=== PATIENT | male | born 1980 | race African-American/Black ===

== ENCOUNTER 2020-02-16 20:26 | Inpatient (IN) ==
[2020-02-16] MEDS ORDERED: ONDANSETRON 4 MG/2 ML VIAL IV STA (21:31)
[2020-02-16] MEDS ORDERED: SODIUM CHLORIDE 0.9% 1,000 ML IV STA (21:31)
[2020-02-16 22:06] LABS: Basophils # 0.1 10*3/uL (0.0-0.2); Basophils % 0.6 % (0.0-0.8); Eosinophils % 0.1 % (0.00-10.9); Hematocrit 34.9 VOL% (42.0-52.0); Hemoglobin 10.9 GM/DL (14.0-18.0); Immature Granulocytes % 0.9 %; Lymphocytes # 0.8 10*3/uL (1.4-4.0); Lymphocytes % 6.8 % (21.2-54.2); Mean Corpuscular HGB Conc 31.2 GM/DL (32-36); Mean Corpuscular Volume 81.2 FL (87-102); Monocytes % 9.4 % (1.7-12.7); Neutrophils % 82.2 % (38.7-73.9); Platelet Count 223 T/CUMM (130-400); Red Cell Distribution Width 15.1 % (9.3-17.3); White Blood Count 11.7 T/CUMM (4-12)
[2020-02-16 22:27] LABS: Bilirubin,Total 0.6 MG/DL (0.2-1.0); Calcium 8.4 MG/DL (8.5-10.1); Osmolality,Calculated 276.2 MOS/KG (273-304); Total Protein 9.2 G/DL (6.4-8.3)
[2020-02-16] MEDS ORDERED: MAGNESIUM SULF RIDER 2 GM in PREMIX 1 EACH IV STA (22:38)
[2020-02-16] MEDS ORDERED: PIPERACILLIN/TAZOBACTAM 3,375 MG in SODIUM CHLORIDE 0.9% 100 ML IV STA (22:47)
[2020-02-16] MEDS ORDERED: PROMETHAZINE 25 MG/1 ML VIAL ONE (23:54)
[2020-02-16] MEDS ORDERED: PROMETHAZINE 25 MG/1 ML VIAL IM STA (23:55)
[2020-02-17 01:53] LABS: Apearance,Urine Slightly Hazy (Clear); Bacteria,Urine Few /HPF (Few); Bilirubin,Urine Negative (Negative); Blood, Urine Moderate mg/dL (Negative); Glucose,Urine (UA) 50 mg/dL (Negative); Granular Casts,Urine 11 /LPF (0-1); Hyaline Casts,Urine 94 /LPF (0-3); Ketones,Urine Negative (Negative); Mucus,Urine Few /LPF (Occasional); Nitrite,Urine Negative (Negative); Protein,Urine >=500 MG/DL; RBC,Urine 13 /HPF (0-4); Red Blood Cell Casts,Urine 4 /LPF (<1); Renal Epithelial Cells,Urine Occasional /HPF (<1); Sperm,Urine Few /HPF (Negative); Urine Color Amber (Yellow); Urine Specific Gravity 1.026 (1.001-1.035); Urine Urobilinogen < 2.0 EU/DL (0.2-1.0); WBC,Urine 5 /HPF (0-6)
[2020-02-17] MEDS ORDERED: PROMETHAZINE INJ 25 MG in SODIUM CHLORIDE 0.9% 50 ML IV PRN (02:11)
[2020-02-17] MEDS ORDERED: ALBUTEROL 2.5 MG/3 ML NEB RESP TX PRN (02:11)
[2020-02-17] MEDS ORDERED: PANTOPRAZOLE 40 MG VIAL IV STA (02:12)
[2020-02-17] MEDS ORDERED: MAGNESIUM SULF RIDER 2 GM in PREMIX 1 EACH IV PRN (02:13)
[2020-02-17] MEDS ORDERED: MAGNESIUM SULF RIDER 4 GM in PREMIX 1 EACH IV PRN (02:13)
[2020-02-17] MEDS ORDERED: DEXTROSE 50% 25 GM/50 ML VIAL IV PRN (02:17)
[2020-02-17] MEDS ORDERED: GLUCAGON 1 MG VIAL IM PRN (02:17)
[2020-02-17 04:50] LABS: Basophils # 0.1 10*3/uL (0.0-0.2); Basophils % 0.5 % (0.0-0.8); Eosinophils # 0.1 10*3/uL (0.0-0.87); Eosinophils % 0.3 % (0.00-10.9); Hematocrit 24.8 VOL% (42.0-52.0); Hemoglobin 7.4 GM/DL (14.0-18.0); Immature Granulocytes % 0.9 %; Immature Granulocytes Absolute 0.15 #; Lymphocytes # 1.4 10*3/uL (1.4-4.0); Mean Corpuscular HGB Conc 29.8 GM/DL (32-36); Mean Corpuscular Volume 82.4 FL (87-102); Mean Platelet Volume 10.5 FL (9.6-12.0); Monocytes % 7.8 % (1.7-12.7); Neutrophils % 82.5 % (38.7-73.9); Platelet Count 265 T/CUMM (130-400); Red Blood Count 3.01 MC/CUMM (3.8-5.5); Red Cell Distribution Width 15.1 % (9.3-17.3); White Blood Count 17.3 T/CUMM (4-12)
[2020-02-17 05:04] LABS: Calcium 8.2 MG/DL (8.5-10.1); Osmolality,Calculated 279.1 MOS/KG (273-304)
[2020-02-17] MEDS: SODIUM CHLORIDE 0.9% 1,000 ML IV SCH ×3 (06:00→20:23)
[2020-02-17 06:53] LABS: Ferritin 518.7 ng/ml (26-388)
[2020-02-17 07:26] LABS: Basophils # 0.1 10*3/uL (0.0-0.2); Basophils % 0.4 % (0.0-0.8); Hematocrit 23.4 VOL% (42.0-52.0); Hemoglobin 7.3 GM/DL (14.0-18.0); Immature Granulocytes % 0.8 %; Immature Granulocytes Absolute 0.12 #; Lymphocytes % 6.4 % (21.2-54.2); Mean Corpuscular HGB Conc 31.2 GM/DL (32-36); Mean Corpuscular Volume 81.3 FL (87-102); Mean Platelet Volume 10.7 FL (9.6-12.0); Monocytes % 7.5 % (1.7-12.7); Neutrophils % 84.9 % (38.7-73.9); Platelet Count 243 T/CUMM (130-400); Red Blood Count 2.88 MC/CUMM (3.8-5.5); Red Cell Distribution Width 15.1 % (9.3-17.3); White Blood Count 15.5 T/CUMM (4-12)
[2020-02-17 07:49] LABS: % Iron Saturation 7.7 % (18-50); Ferritin 531.9 ng/ml (26-388)
[2020-02-17 07:55] LABS: Folate 12.9 NG/ML (5.4-24.0); Vitamin B12 390 PG/ML (211-911)
[2020-02-17 08:36] LABS: Sedimentation Rate-Westergren 134 MM/HR (0-15)
[2020-02-17] MEDS ORDERED: VANCOMYCIN 1,000 MG VIAL ONE (09:41)
[2020-02-17] MEDS: INSULIN GLARGINE 100 UNIT/ML SUBCUT SCH (10:15)
[2020-02-17] MEDS: ROSUVASTATIN 20 MG TABLET PO SCH (10:15)
[2020-02-17] MEDS: NEBIVOLOL 5 MG TABLET PO SCH (10:15)
[2020-02-17] MEDS: ENOXAPARIN 40 MG/0.4 ML SYRINGE SUBCUT SCH (10:15)
[2020-02-17] MEDS: amLODIPine 10 MG TABLET PO SCH (10:15)
[2020-02-17] MEDS: PANTOPRAZOLE 40 MG VIAL IV SCH (10:15)
[2020-02-17] MEDS: VANCOMYCIN INJ 2,000 MG in SODIUM CHLORIDE 0.9% 500 ML IV SCH (10:30)
[2020-02-17] MEDS: INSULIN LISPRO 100 UNIT/ML SUBCUT SCH ×4 (10:43→21:39)
[2020-02-17] MEDS: PIPERACILLIN/TAZOBACTAM 3,375 MG in SODIUM CHLORIDE 0.9% 100 ML IV SCH ×3 (12:40→21:39)
[2020-02-17] MEDS ORDERED: ACETAMINOPHEN 325 MG TABLET PO PRN ×2 (20:59→23:26)
[2020-02-17] MEDS ORDERED: ACETAMINOPHEN 500 MG TABLET PO ONE (21:00)
[2020-02-18] MEDS: VANCOMYCIN INJ 2,000 MG in SODIUM CHLORIDE 0.9% 500 ML IV SCH ×2 (01:19→17:13)
[2020-02-18] MEDS: PIPERACILLIN/TAZOBACTAM 3,375 MG in SODIUM CHLORIDE 0.9% 100 ML IV SCH ×3 (06:09→20:31)
[2020-02-18] MEDS: SODIUM CHLORIDE 0.9% 1,000 ML IV SCH ×3 (06:12→17:59)
[2020-02-18 06:25] LABS: Basophils # 0.1 10*3/uL (0.0-0.2); Basophils % 0.5 % (0.0-0.8); Eosinophils % 0.4 % (0.00-10.9); Hematocrit 21.3 VOL% (42.0-52.0); Immature Granulocytes % 0.5 %; Immature Granulocytes Absolute 0.06 #; Lymphocytes # 1.2 10*3/uL (1.4-4.0); Lymphocytes % 11.1 % (21.2-54.2); Mean Corpuscular Volume 83.5 FL (87-102); Mean Platelet Volume 10.4 FL (9.6-12.0); Monocytes % 14.4 % (1.7-12.7); Neutrophils % 73.1 % (38.7-73.9); Platelet Count 198 T/CUMM (130-400); Red Blood Count 2.55 MC/CUMM (3.8-5.5); Red Cell Distribution Width 15.2 % (9.3-17.3)
[2020-02-18 06:35] LABS: Hemoglobin 6.4 GM/DL (14.0-18.0)
[2020-02-18] MEDS ORDERED: SODIUM CHLORIDE 0.9% 1,000 ML IV PRN (06:40)
[2020-02-18 06:49] LABS: Osmolality,Calculated 279.8 MOS/KG (273-304)
[2020-02-18 07:01] LABS: Anisocytosis 2+; Platelet Estimate Normal
[2020-02-18] MEDS: INSULIN LISPRO 100 UNIT/ML SUBCUT SCH ×4 (08:30→20:55)
[2020-02-18] MEDS: ENOXAPARIN 40 MG/0.4 ML SYRINGE SUBCUT SCH (08:31)
[2020-02-18] MEDS ORDERED: LIDOCAINE 1% 20 ML VIAL ONE (09:09)
[2020-02-18] MEDS ORDERED: BUPIVACAINE MPF 0.25% 30 ML VIAL ONE (09:09)
[2020-02-18] MEDS: INSULIN GLARGINE 100 UNIT/ML SUBCUT SCH (09:11)
[2020-02-18] MEDS: PANTOPRAZOLE 40 MG VIAL IV SCH (09:11)
[2020-02-18] MEDS: amLODIPine 10 MG TABLET PO SCH (09:11)
[2020-02-18] MEDS: NEBIVOLOL 5 MG TABLET PO SCH (09:11)
[2020-02-18] MEDS: ROSUVASTATIN 20 MG TABLET PO SCH (09:11)
[2020-02-18] MEDS ORDERED: ONDANSETRON 4 MG/2 ML VIAL IV PRN (09:27)
[2020-02-18] MEDS ORDERED: diphenhydrAMINE 50 MG/1 ML VIAL IV PRN (09:27)
[2020-02-18] MEDS ORDERED: PROMETHAZINE INJ 25 MG in SODIUM CHLORIDE 0.9% 50 ML IV PRN (09:27)
[2020-02-18] MEDS ORDERED: FAMOTIDINE 20 MG TABLET PO ONE (09:29)
[2020-02-18] MEDS ORDERED: DEXMEDETOMIDINE 200 MCG/2 ML VIAL ONE (10:25)
[2020-02-18] MEDS ORDERED: MIDAZOLAM 2 MG/2 ML VIAL ONE (10:58)
[2020-02-18 18:46] LABS: Hematocrit 25.2 VOL% (42.0-52.0)
[2020-02-18 18:49] LABS: Hemoglobin 7.5 GM/DL (14.0-18.0)
[2020-02-18] MEDS: ONDANSETRON 4 MG/2 ML VIAL IV PRN (20:29)
[2020-02-18] MEDS: MORPHINE 4 MG/1 ML VIAL IV PRN (20:30)
[2020-02-18] MEDS: IBUPROFEN 600 MG TABLET PO PRN (20:45)
[2020-02-19] MEDS: SODIUM CHLORIDE 0.9% 1,000 ML IV SCH ×3 (03:26→22:01)
[2020-02-19] MEDS: PIPERACILLIN/TAZOBACTAM 3,375 MG in SODIUM CHLORIDE 0.9% 100 ML IV SCH (04:46)
[2020-02-19 05:33] LABS: Basophils # 0.1 10*3/uL (0.0-0.2); Basophils % 0.6 % (0.0-0.8); Eosinophils # 0.1 10*3/uL (0.0-0.87); Eosinophils % 1.5 % (0.00-10.9); Hematocrit 23.7 VOL% (42.0-52.0); Hemoglobin 7.3 GM/DL (14.0-18.0); Immature Granulocytes % 0.6 %; Immature Granulocytes Absolute 0.05 #; Lymphocytes # 1.2 10*3/uL (1.4-4.0); Lymphocytes % 15.2 % (21.2-54.2); Mean Corpuscular HGB Conc 30.8 GM/DL (32-36); Mean Platelet Volume 10.8 FL (9.6-12.0); Monocytes % 20.2 % (1.7-12.7); Neutrophils % 61.9 % (38.7-73.9); Platelet Count 212 T/CUMM (130-400); Red Blood Count 2.89 MC/CUMM (3.8-5.5); Red Cell Distribution Width 15.2 % (9.3-17.3); White Blood Count 8.2 T/CUMM (4-12)
[2020-02-19 05:54] LABS: Calcium 8.2 MG/DL (8.5-10.1); Osmolality,Calculated 276.8 MOS/KG (273-304)
[2020-02-19 06:03] LABS: Eosinophils 4 % (0-10); Hypochromasia 2+; Lymphocytes 12 % (20-55); Microcytosis 1+; Ovalocytes Slight; Platelet Estimate Adequate; Segmented Neutrophils 74 % (50-85); Total Cells Counted 100
[2020-02-19] MEDS: INSULIN GLARGINE 100 UNIT/ML SUBCUT SCH (08:27)
[2020-02-19] MEDS: NEBIVOLOL 5 MG TABLET PO SCH (08:27)
[2020-02-19] MEDS: INSULIN LISPRO 100 UNIT/ML SUBCUT SCH ×4 (08:27→22:01)
[2020-02-19] MEDS ORDERED: MAGNESIUM CITRATE 300 ML BOTTLE PO ONE (08:36)
[2020-02-19] MEDS: ROSUVASTATIN 20 MG TABLET PO SCH (08:36)
[2020-02-19] MEDS ORDERED: propofoL 200 MG/20 ML VIAL IV ONE (09:00)
[2020-02-19] MEDS ORDERED: LIDOCAINE 2% 5 ML VIAL ONE (09:00)
[2020-02-19 09:04] LABS: Hemoglobin A1 (Alkaline) 98.2 % (96.5-98.5); Hemoglobin A2 (Alkaline) 1.8 % (1.5-3.5)
[2020-02-19] MEDS: VANCOMYCIN INJ 2,000 MG in SODIUM CHLORIDE 0.9% 500 ML IV SCH ×2 (11:08→23:54)
[2020-02-19] MEDS: ENOXAPARIN 40 MG/0.4 ML SYRINGE SUBCUT SCH (13:34)
[2020-02-19] MEDS: DOCUSATE SODIUM 100 MG CAPSULE PO PRN ×2 (15:03→21:59)
[2020-02-19] MEDS: amLODIPine 10 MG TABLET PO SCH (15:04)
[2020-02-19] MEDS: IBUPROFEN 600 MG TABLET PO PRN (15:04)
[2020-02-19] MEDS: PANTOPRAZOLE 40 MG VIAL IV SCH (15:04)
[2020-02-19] MEDS: MEPERIDINE 25 MG/1 ML VIAL IV PRN (15:34)
[2020-02-20 08:42] LABS: Basophils % 0.6 % (0.0-0.8); Eosinophils # 0.2 10*3/uL (0.0-0.87); Eosinophils % 2.3 % (0.00-10.9); Hematocrit 22.5 VOL% (42.0-52.0); Hemoglobin 7.1 GM/DL (14.0-18.0); Immature Granulocytes % 0.9 %; Immature Granulocytes Absolute 0.06 #; Lymphocytes # 1.6 10*3/uL (1.4-4.0); Lymphocytes % 24.7 % (21.2-54.2); Mean Corpuscular HGB Conc 31.6 GM/DL (32-36); Mean Corpuscular Volume 82.1 FL (87-102); Mean Platelet Volume 10.4 FL (9.6-12.0); Monocytes % 16.3 % (1.7-12.7); Neutrophils % 55.2 % (38.7-73.9); Platelet Count 207 T/CUMM (130-400); Red Blood Count 2.74 MC/CUMM (3.8-5.5); Red Cell Distribution Width 15.6 % (9.3-17.3); White Blood Count 6.4 T/CUMM (4-12)
[2020-02-20 09:04] LABS: Eosinophils 4 % (0-10); Hypochromasia 1+; Lymphocytes 24 % (20-55); Microcytosis 1+; Segmented Neutrophils 60 % (50-85); Total Cells Counted 100
[2020-02-20 09:05] LABS: Calcium 7.9 MG/DL (8.5-10.1); Osmolality,Calculated 277.7 MOS/KG (273-304); Ovalocytes Slight; Polychromasia Slight
[2020-02-20] MEDS: ONDANSETRON 4 MG/2 ML VIAL IV PRN (09:23)
[2020-02-20] MEDS: NEBIVOLOL 5 MG TABLET PO SCH (09:23)
[2020-02-20] MEDS: ROSUVASTATIN 20 MG TABLET PO SCH (09:23)
[2020-02-20] MEDS: amLODIPine 10 MG TABLET PO SCH (09:23)
[2020-02-20] MEDS: ENOXAPARIN 40 MG/0.4 ML SYRINGE SUBCUT SCH (09:24)
[2020-02-20] MEDS: INSULIN LISPRO 100 UNIT/ML SUBCUT SCH ×4 (09:24→21:24)
[2020-02-20] MEDS: MEPERIDINE 25 MG/1 ML VIAL IV PRN (09:25)
[2020-02-20] MEDS: INSULIN GLARGINE 100 UNIT/ML SUBCUT SCH (09:26)
[2020-02-20] MEDS: PANTOPRAZOLE 40 MG VIAL IV SCH (09:26)
[2020-02-20] MEDS: IBUPROFEN 600 MG TABLET PO PRN (09:26)
[2020-02-20] MEDS: DOCUSATE SODIUM 100 MG CAPSULE PO PRN (09:26)
[2020-02-20] MEDS: SODIUM CHLORIDE 0.9% 1,000 ML IV SCH ×3 (09:30→20:46)
[2020-02-20] MEDS: VANCOMYCIN INJ 2,000 MG in SODIUM CHLORIDE 0.9% 500 ML IV SCH ×2 (13:00→23:45)
[2020-02-20] MEDS: MORPHINE 4 MG/1 ML VIAL IV PRN (15:33)
[2020-02-21] MEDS: SODIUM CHLORIDE 0.9% 1,000 ML IV SCH (05:37)
[2020-02-21 07:20] LABS: Basophils # 0.1 10*3/uL (0.0-0.2); Basophils % 0.6 % (0.0-0.8); Eosinophils # 0.1 10*3/uL (0.0-0.87); Eosinophils % 1.8 % (0.00-10.9); Hematocrit 23.5 VOL% (42.0-52.0); Immature Granulocytes % 1.8 %; Immature Granulocytes Absolute 0.14 #; Lymphocytes % 25.2 % (21.2-54.2); Mean Corpuscular HGB Conc 29.8 GM/DL (32-36); Mean Corpuscular Volume 84.5 FL (87-102); Mean Platelet Volume 10.3 FL (9.6-12.0); Monocytes % 9.7 % (1.7-12.7); Neutrophils % 60.9 % (38.7-73.9); Platelet Count 239 T/CUMM (130-400); Red Blood Count 2.78 MC/CUMM (3.8-5.5); Red Cell Distribution Width 15.5 % (9.3-17.3); White Blood Count 7.9 T/CUMM (4-12)
[2020-02-21 07:34] LABS: Calcium 7.9 MG/DL (8.5-10.1); Osmolality,Calculated 277.7 MOS/KG (273-304)
[2020-02-21 07:38] LABS: Eosinophils 2 % (0-10); Hypochromasia 2+; Lymphocytes 17 % (20-55); Microcytosis 1+; Ovalocytes Slight; Platelet Estimate Adequate; Segmented Neutrophils 75 % (50-85); Total Cells Counted 100
[2020-02-21] MEDS ORDERED: ROPIVACAINE 0.5% 30 ML VIAL ONE (08:42)
[2020-02-21] MEDS ORDERED: EPINEPHrine 1 MG/ML VIAL ONE (08:42)
[2020-02-21] MEDS ORDERED: DEXAMETHASONE 4 MG/1 ML VIAL ONE (08:42)
[2020-02-21] MEDS: NEBIVOLOL 5 MG TABLET PO SCH (08:43)
[2020-02-21] MEDS: amLODIPine 10 MG TABLET PO SCH (08:43)
[2020-02-21] MEDS: PANTOPRAZOLE 40 MG VIAL IV SCH (08:44)
[2020-02-21] MEDS: INSULIN LISPRO 100 UNIT/ML SUBCUT SCH ×4 (11:33→21:10)
[2020-02-21] MEDS: ROSUVASTATIN 20 MG TABLET PO SCH (11:34)
[2020-02-21] MEDS: INSULIN GLARGINE 100 UNIT/ML SUBCUT SCH (11:34)
[2020-02-21] MEDS: ENOXAPARIN 40 MG/0.4 ML SYRINGE SUBCUT SCH (11:34)
[2020-02-21] MEDS ORDERED: SODIUM CHLORIDE 0.9% 1,000 ML IV PRN ×2 (12:18→12:21)
[2020-02-21 12:22] LABS: Hematocrit 25.4 VOL% (42.0-52.0); Hemoglobin 7.7 GM/DL (14.0-18.0)
[2020-02-21] MEDS ORDERED: ACETAMINOPHEN 1,000 MG/100 ML VIAL IV ONE (12:53)
[2020-02-21] MEDS ORDERED: ONDANSETRON 4 MG/2 ML VIAL ONE ×2 (13:07→13:10)
[2020-02-21] MEDS ORDERED: HYDROmorphone 2 MG/1 ML VIAL ONE (13:07)
[2020-02-21] MEDS: HYDROmorphone 2 MG/1 ML VIAL IV PRN ×2 (13:07→13:30)
[2020-02-21] MEDS ORDERED: propofoL 200 MG/20 ML VIAL IV ONE (13:09)
[2020-02-21] MEDS ORDERED: DESFLURANE 1 UNIT/15 MINUTE INH ONE (13:09)
[2020-02-21] MEDS ORDERED: ALBUMIN 5% 12.5 GM/250 ML VIAL IV ONE (13:09)
[2020-02-21] MEDS ORDERED: LIDOCAINE 2% 5 ML VIAL ONE (13:09)
[2020-02-21] MEDS ORDERED: fentaNYL 250 MCG/5 ML VIAL ONE (13:09)
[2020-02-21] MEDS ORDERED: PHENYLEPHRINE 1 MG/10 ML SYRINGE IV ONE (13:10)
[2020-02-21] MEDS ORDERED: SODIUM CHLORIDE 0.9% 2,000 ML IV ONE (13:10)
[2020-02-21] MEDS ORDERED: fentaNYL 100 MCG/2 ML VIAL ONE (13:10)
[2020-02-21] MEDS ORDERED: LACTATED RINGERS 1,000 ML IV ONE (13:10)
[2020-02-21] MEDS ORDERED: MIDAZOLAM 2 MG/2 ML VIAL ONE (13:10)
[2020-02-21] MEDS ORDERED: SUCCINYLCHOLINE 200 MG/10 ML VIAL ONE (13:10)
[2020-02-21] MEDS ORDERED: ONDANSETRON 4 MG/2 ML VIAL IV PRN (13:16)
[2020-02-21 15:25] LABS: Hemoglobin 7.9 GM/DL (14.0-18.0)
[2020-02-21] MEDS: MORPHINE 4 MG/1 ML VIAL IV PRN ×2 (17:44→20:33)
[2020-02-21] MEDS: IBUPROFEN 600 MG TABLET PO PRN (18:58)
[2020-02-22] MEDS: MORPHINE 4 MG/1 ML VIAL IV PRN ×5 (01:57→20:37)
[2020-02-22] MEDS: SODIUM CHLORIDE 0.9% 1,000 ML IV SCH ×4 (01:58→16:51)
[2020-02-22 05:45] LABS: Basophils # 0.1 10*3/uL (0.0-0.2); Basophils % 0.4 % (0.0-0.8); Eosinophils # 0.1 10*3/uL (0.0-0.87); Eosinophils % 0.5 % (0.00-10.9); Hematocrit 24.8 VOL% (42.0-52.0); Hemoglobin 7.8 GM/DL (14.0-18.0); Immature Granulocytes % 2.3 %; Immature Granulocytes Absolute 0.29 #; Lymphocytes # 2.1 10*3/uL (1.4-4.0); Lymphocytes % 16.7 % (21.2-54.2); Mean Corpuscular HGB Conc 31.5 GM/DL (32-36); Mean Corpuscular Volume 83.5 FL (87-102); Mean Platelet Volume 10.8 FL (9.6-12.0); Monocytes % 9.8 % (1.7-12.7); Neutrophils % 70.3 % (38.7-73.9); Platelet Count 242 T/CUMM (130-400); Red Blood Count 2.97 MC/CUMM (3.8-5.5); Red Cell Distribution Width 15.9 % (9.3-17.3); White Blood Count 12.5 T/CUMM (4-12)
[2020-02-22 06:12] LABS: Hypochromasia 2+; Microcytosis 1+
[2020-02-22 06:13] LABS: Ovalocytes Slight; Platelet Estimate Adequate
[2020-02-22 07:27] LABS: Calcium 7.3 MG/DL (8.5-10.1); Osmolality,Calculated 284.7 MOS/KG (273-304)
[2020-02-22] MEDS: INSULIN LISPRO 100 UNIT/ML SUBCUT SCH ×4 (08:36→20:37)
[2020-02-22] MEDS: INSULIN GLARGINE 100 UNIT/ML SUBCUT SCH (08:37)
[2020-02-22] MEDS: ENOXAPARIN 40 MG/0.4 ML SYRINGE SUBCUT SCH (08:38)
[2020-02-22] MEDS: PANTOPRAZOLE 40 MG VIAL IV SCH (08:39)
[2020-02-22] MEDS: ROSUVASTATIN 20 MG TABLET PO SCH (08:42)
[2020-02-22] MEDS: NEBIVOLOL 5 MG TABLET PO SCH (08:42)
[2020-02-22] MEDS: DOCUSATE SODIUM 100 MG CAPSULE PO PRN (08:42)
[2020-02-22] MEDS: amLODIPine 10 MG TABLET PO SCH (08:42)
[2020-02-23] MEDS: MORPHINE 4 MG/1 ML VIAL IV PRN ×3 (01:10→19:34)
[2020-02-23] MEDS: SODIUM CHLORIDE 0.9% 1,000 ML IV SCH ×2 (01:10→12:09)
[2020-02-23 05:56] LABS: Basophils # 0.1 10*3/uL (0.0-0.2); Basophils % 0.6 % (0.0-0.8); Eosinophils # 0.2 10*3/uL (0.0-0.87); Eosinophils % 1.9 % (0.00-10.9); Hematocrit 25.7 VOL% (42.0-52.0); Hemoglobin 7.9 GM/DL (14.0-18.0); Immature Granulocytes % 3.9 %; Immature Granulocytes Absolute 0.41 #; Lymphocytes # 1.9 10*3/uL (1.4-4.0); Lymphocytes % 18.3 % (21.2-54.2); Mean Corpuscular HGB Conc 30.7 GM/DL (32-36); Mean Platelet Volume 10.5 FL (9.6-12.0); Neutrophils % 64.3 % (38.7-73.9); Platelet Count 266 T/CUMM (130-400); Red Blood Count 3.06 MC/CUMM (3.8-5.5); Red Cell Distribution Width 15.9 % (9.3-17.3); White Blood Count 10.6 T/CUMM (4-12)
[2020-02-23 06:27] LABS: Calcium 7.7 MG/DL (8.5-10.1); Osmolality,Calculated 290.8 MOS/KG (273-304)
[2020-02-23 06:38] LABS: Band Neutrophils 2 % (0-10); Eosinophils 2 % (0-10); Hypochromasia 2+; Lymphocytes 18 % (20-55); Microcytosis Slight; Nucleated Red Blood Cells 1 (0-5); Ovalocytes Slight; Platelet Estimate Adequate; Segmented Neutrophils 70 % (50-85); Total Cells Counted 100
[2020-02-23] MEDS: INSULIN LISPRO 100 UNIT/ML SUBCUT SCH ×4 (08:11→20:40)
[2020-02-23] MEDS ORDERED: POTASSIUM CHLORIDE 20 MEQ TABLET PO ONE (08:21)
[2020-02-23] MEDS: ROSUVASTATIN 20 MG TABLET PO SCH (09:44)
[2020-02-23] MEDS: NEBIVOLOL 5 MG TABLET PO SCH (09:44)
[2020-02-23] MEDS: ENOXAPARIN 40 MG/0.4 ML SYRINGE SUBCUT SCH (09:44)
[2020-02-23] MEDS: amLODIPine 10 MG TABLET PO SCH (09:44)
[2020-02-23] MEDS: INSULIN GLARGINE 100 UNIT/ML SUBCUT SCH (09:45)
[2020-02-23] MEDS: VANCOMYCIN INJ 2,000 MG in SODIUM CHLORIDE 0.9% 500 ML IV SCH (09:47)
[2020-02-24] MEDS: SODIUM CHLORIDE 0.9% 1,000 ML IV SCH ×2 (00:31→09:59)
[2020-02-24 06:11] LABS: Basophils # 0.1 10*3/uL (0.0-0.2); Basophils % 0.4 % (0.0-0.8); Eosinophils # 0.2 10*3/uL (0.0-0.87); Eosinophils % 1.7 % (0.00-10.9); Hematocrit 27.1 VOL% (42.0-52.0); Hemoglobin 8.3 GM/DL (14.0-18.0); Immature Granulocytes % 3.4 %; Immature Granulocytes Absolute 0.39 #; Lymphocytes # 1.8 10*3/uL (1.4-4.0); Lymphocytes % 16.3 % (21.2-54.2); Mean Corpuscular HGB Conc 30.6 GM/DL (32-36); Mean Corpuscular Volume 84.7 FL (87-102); Monocytes % 11.1 % (1.7-12.7); Neutrophils % 67.1 % (38.7-73.9); Platelet Count 350 T/CUMM (130-400); White Blood Count 11.3 T/CUMM (4-12)
[2020-02-24 06:45] LABS: Calcium 8.7 MG/DL (8.5-10.1); Osmolality,Calculated 291.4 MOS/KG (273-304)
[2020-02-24] MEDS: MORPHINE 4 MG/1 ML VIAL IV PRN (07:54)
[2020-02-24] MEDS ORDERED: POTASSIUM CHLORIDE 20 MEQ TABLET PO ONE (08:01)
[2020-02-24] MEDS: INSULIN LISPRO 100 UNIT/ML SUBCUT SCH ×4 (08:18→20:20)
[2020-02-24] MEDS: ENOXAPARIN 40 MG/0.4 ML SYRINGE SUBCUT SCH (09:28)
[2020-02-24] MEDS: VANCOMYCIN INJ 2,000 MG in SODIUM CHLORIDE 0.9% 500 ML IV SCH (09:28)
[2020-02-24] MEDS: NEBIVOLOL 5 MG TABLET PO SCH (09:29)
[2020-02-24] MEDS: amLODIPine 10 MG TABLET PO SCH (09:29)
[2020-02-24] MEDS: ROSUVASTATIN 20 MG TABLET PO SCH (09:29)
[2020-02-24] MEDS: INSULIN GLARGINE 100 UNIT/ML SUBCUT SCH (09:29)
[2020-02-24] MEDS: DEXTROSE 5% NACL 0.45% 1,000 ML IV SCH ×2 (10:00→19:34)
[2020-02-25] MEDS: DEXTROSE 5% NACL 0.45% 1,000 ML IV SCH ×3 (01:01→17:41)
[2020-02-25 05:29] LABS: Basophils # 0.1 10*3/uL (0.0-0.2); Basophils % 0.7 % (0.0-0.8); Eosinophils # 0.2 10*3/uL (0.0-0.87); Eosinophils % 2.4 % (0.00-10.9); Hematocrit 29.1 VOL% (42.0-52.0); Hemoglobin 9.1 GM/DL (14.0-18.0); Immature Granulocytes % 2.1 %; Immature Granulocytes Absolute 0.19 #; Lymphocytes # 1.8 10*3/uL (1.4-4.0); Lymphocytes % 19.7 % (21.2-54.2); Mean Corpuscular HGB Conc 31.3 GM/DL (32-36); Mean Corpuscular Volume 82.4 FL (87-102); Monocytes % 10.4 % (1.7-12.7); Neutrophils % 64.7 % (38.7-73.9); Platelet Count 354 T/CUMM (130-400); Red Blood Count 3.53 MC/CUMM (3.8-5.5); Red Cell Distribution Width 15.9 % (9.3-17.3); White Blood Count 9.1 T/CUMM (4-12)
[2020-02-25 06:07] LABS: Calcium 8.4 MG/DL (8.5-10.1); Osmolality,Calculated 288.8 MOS/KG (273-304)
[2020-02-25] MEDS: INSULIN LISPRO 100 UNIT/ML SUBCUT SCH ×4 (08:14→20:39)
[2020-02-25] MEDS: amLODIPine 10 MG TABLET PO SCH (08:54)
[2020-02-25] MEDS: ENOXAPARIN 40 MG/0.4 ML SYRINGE SUBCUT SCH (08:54)
[2020-02-25] MEDS: NEBIVOLOL 5 MG TABLET PO SCH (08:54)
[2020-02-25] MEDS: INSULIN GLARGINE 100 UNIT/ML SUBCUT SCH ×2 (08:54→09:20)
[2020-02-25] MEDS: ROSUVASTATIN 20 MG TABLET PO SCH (08:54)
[2020-02-25] MEDS: POLYETHYLENE GLYCOL POWDER 17 GM PACK PO SCH (11:05)
[2020-02-25] MEDS: POTASSIUM CHLORIDE 20 MEQ TABLET PO SCH ×2 (11:05→20:38)
[2020-02-25] MEDS: IBUPROFEN 600 MG TABLET PO PRN (13:54)
[2020-02-26] MEDS: DEXTROSE 5% NACL 0.45% 1,000 ML IV SCH ×3 (00:30→15:42)
[2020-02-26 06:38] LABS: Calcium 8.3 MG/DL (8.5-10.1); Osmolality,Calculated 285.5 MOS/KG (273-304)
[2020-02-26] MEDS: INSULIN LISPRO 100 UNIT/ML SUBCUT SCH ×4 (07:43→21:15)
[2020-02-26] MEDS: ENOXAPARIN 40 MG/0.4 ML SYRINGE SUBCUT SCH (07:43)
[2020-02-26] MEDS: POTASSIUM CHLORIDE RIDER 10 MEQ in PREMIX 1 EACH IV PRN ×4 (07:46→18:39)
[2020-02-26] MEDS: MORPHINE 4 MG/1 ML VIAL IV PRN (07:46)
[2020-02-26] MEDS: POTASSIUM CHLORIDE 20 MEQ TABLET PO SCH ×2 (08:09→21:14)
[2020-02-26] MEDS: NEBIVOLOL 5 MG TABLET PO SCH (08:09)
[2020-02-26] MEDS: INSULIN GLARGINE 100 UNIT/ML SUBCUT SCH (08:09)
[2020-02-26] MEDS: ROSUVASTATIN 20 MG TABLET PO SCH (08:09)
[2020-02-26] MEDS: amLODIPine 10 MG TABLET PO SCH (08:10)
[2020-02-26] MEDS: POLYETHYLENE GLYCOL POWDER 17 GM PACK PO SCH (08:10)
[2020-02-26] MEDS ORDERED: NEBIVOLOL 5 MG TABLET PO SCH (17:38)
[2020-02-27] MEDS: VANCOMYCIN INJ 2,000 MG in SODIUM CHLORIDE 0.9% 500 ML IV SCH ×3 (06:20→10:27)
[2020-02-27] MEDS: IBUPROFEN 600 MG TABLET PO PRN ×2 (06:20→14:06)
[2020-02-27 06:40] LABS: Calcium 8.2 MG/DL (8.5-10.1); Osmolality,Calculated 281.7 MOS/KG (273-304)
[2020-02-27] MEDS: DEXTROSE 5% NACL 0.45% 1,000 ML IV SCH ×3 (06:45→15:43)
[2020-02-27] MEDS: ROSUVASTATIN 20 MG TABLET PO SCH (08:13)
[2020-02-27] MEDS: amLODIPine 10 MG TABLET PO SCH (08:13)
[2020-02-27] MEDS: ENOXAPARIN 40 MG/0.4 ML SYRINGE SUBCUT SCH (08:14)
[2020-02-27] MEDS: INSULIN GLARGINE 100 UNIT/ML SUBCUT SCH (08:14)
[2020-02-27] MEDS: INSULIN LISPRO 100 UNIT/ML SUBCUT SCH ×2 (08:16→11:30)
[2020-02-27] MEDS ORDERED: MULTIVITAMIN (CENTRUM) TABLET PO SCH (09:00)
[2020-02-27] MEDS: POLYETHYLENE GLYCOL POWDER 17 GM PACK PO SCH (10:16)
[2020-02-27 11:47] VITALS: BP 194/98
== END 2020-02-27 16:44 | DRG 617 ==
LOC: EDUNIT# → EDBD → N.ED 20:26 → N.EDINP 20:26 → SUATTDRO 02-17 01:49 → N.EDINP 02-17 20:03 → N.3E 02-17 20:19 → SUATTDRO 02-19 15:34
PROVIDERS: ADMIT Internal Medicine; ATTEND Internal Medicine

== ENCOUNTER 2020-03-11 14:36 | Observation (INO) ==
[2020-03-11] MEDS ORDERED: ACETAMINOPHEN 325 MG TABLET PO PRN (18:33)
[2020-03-11] MEDS ORDERED: GLUCAGON 1 MG VIAL IM PRN (18:33)
[2020-03-11] MEDS ORDERED: ONDANSETRON 4 MG/2 ML VIAL IV PRN (18:33)
[2020-03-11] MEDS ORDERED: DEXTROSE 50% 25 GM/50 ML VIAL IV PRN (18:33)
[2020-03-11 19:23] LABS: Basophils # 0.1 10*3/uL (0.0-0.2); Basophils % 0.9 % (0.0-0.8); Eosinophils # 0.2 10*3/uL (0.0-0.87); Eosinophils % 2.5 % (0.00-10.9); Hematocrit 33.5 VOL% (42.0-52.0); Hemoglobin 10.5 GM/DL (14.0-18.0); Immature Granulocytes % 0.4 %; Immature Granulocytes Absolute 0.03 #; Lymphocytes # 2.3 10*3/uL (1.4-4.0); Lymphocytes % 28.8 % (21.2-54.2); Mean Corpuscular HGB Conc 31.3 GM/DL (32-36); Mean Platelet Volume 10.7 FL (9.6-12.0); Monocytes % 9.9 % (1.7-12.7); Neutrophils % 57.5 % (38.7-73.9); Platelet Count 287 T/CUMM (130-400); Red Blood Count 3.99 MC/CUMM (3.8-5.5); Red Cell Distribution Width 15.4 % (9.3-17.3)
[2020-03-11 19:39] LABS: Calcium 9.3 MG/DL (8.5-10.1); Osmolality,Calculated 288.5 MOS/KG (273-304)
[2020-03-11] MEDS: SODIUM CHLORIDE 0.45% 1,000 ML IV SCH (19:43)
[2020-03-11] MEDS: INSULIN REGULAR 100 UNIT/ML SUBCUT SCH (19:47)
[2020-03-11] MEDS: PIPERACILLIN/TAZOBACTAM 3,375 MG in SODIUM CHLORIDE 0.9% 100 ML IV SCH (21:42)
[2020-03-11] MEDS: MORPHINE 4 MG/1 ML VIAL IV PRN (21:52)
[2020-03-12] MEDS: INSULIN REGULAR 100 UNIT/ML SUBCUT SCH ×3 (01:05→13:52)
[2020-03-12] MEDS: PIPERACILLIN/TAZOBACTAM 3,375 MG in SODIUM CHLORIDE 0.9% 100 ML IV SCH ×2 (05:00→12:52)
[2020-03-12] MEDS: MORPHINE 4 MG/1 ML VIAL IV PRN ×2 (05:58→15:21)
[2020-03-12] MEDS ORDERED: PANTOPRAZOLE 40 MG TABLET PO SCH (09:00)
[2020-03-12] MEDS ORDERED: ROPIVACAINE 0.5% 30 ML VIAL ONE (09:24)
[2020-03-12] MEDS ORDERED: DEXAMETHASONE 4 MG/1 ML VIAL ONE ×2 (09:24→11:38)
[2020-03-12] MEDS: SODIUM CHLORIDE 0.45% 1,000 ML IV SCH (09:45)
[2020-03-12] MEDS ORDERED: LIDOCAINE 1%/EPI INJ 20 ML VIAL ONE (09:46)
[2020-03-12] MEDS ORDERED: BUPIVACAINE MPF 0.25% 30 ML VIAL ONE (09:46)
[2020-03-12] MEDS ORDERED: SEVOFLURANE 1 UNIT/15 MINUTE INH ONE (11:37)
[2020-03-12] MEDS ORDERED: LIDOCAINE 1% 5 ML VIAL ONE (11:37)
[2020-03-12] MEDS ORDERED: MIDAZOLAM 2 MG/2 ML VIAL ONE (11:37)
[2020-03-12] MEDS ORDERED: fentaNYL 100 MCG/2 ML VIAL ONE (11:37)
[2020-03-12] MEDS ORDERED: propofoL 200 MG/20 ML VIAL IV ONE (11:37)
[2020-03-12] MEDS ORDERED: SUCCINYLCHOLINE 200 MG/10 ML VIAL ONE (11:38)
[2020-03-12] MEDS ORDERED: METOPROLOL TARTRATE 5 MG/5 ML VIAL IV ONE (11:38)
[2020-03-12] MEDS ORDERED: ONDANSETRON 4 MG/2 ML VIAL ONE (11:38)
[2020-03-12] MEDS ORDERED: ROCURONIUM 100 MG/10 ML VIAL IV ONE (11:38)
[2020-03-12 15:51] VITALS: BP 163/97
== END 2020-03-12 17:58 | disposition home health service (06) ==
LOC: EDBD → EDUNIT# → N.EDINP 14:36 → N.ED 14:36 → N.EDINP 18:11 → N.3E 18:22
PROVIDERS: ADMIT Surgery; ATTEND Surgery

== ENCOUNTER 2021-02-19 15:48 | Inpatient (IN) ==
[2021-02-19] MEDS ORDERED: ONDANSETRON 4 MG/2 ML VIAL IV ONE (17:38)
[2021-02-19] MEDS ORDERED: MORPHINE 2 MG/1 ML SYRINGE IV ONE ×2 (17:38→18:34)
[2021-02-19] MEDS ORDERED: SODIUM CHLORIDE 0.9% 1,000 ML IV STA (17:38)
[2021-02-19] MEDS ORDERED: ACETAMINOPHEN 325 MG TABLET PO ONE (17:38)
[2021-02-19 18:19] LABS: Basophils % 0.3 % (0.0-0.8); Eosinophils % 0.3 % (0.00-10.9); Hematocrit 29.2 VOL% (42.0-52.0); Hemoglobin 9.1 GM/DL (14.0-18.0); Immature Granulocytes % 0.5 %; Immature Granulocytes Absolute 0.03 #; Lymphocytes # 0.7 10*3/uL (1.4-4.0); Lymphocytes % 11.7 % (21.2-54.2); Mean Corpuscular HGB Conc 31.2 GM/DL (32-36); Mean Corpuscular Volume 89.6 FL (87-102); Mean Platelet Volume 10.7 FL (9.6-12.0); Monocytes % 9.8 % (1.7-12.7); Neutrophils % 77.4 % (38.7-73.9); Platelet Count 190 T/CUMM (130-400); Red Blood Count 3.26 MC/CUMM (3.8-5.5); Red Cell Distribution Width 14.3 % (9.3-17.3); White Blood Count 6.2 T/CUMM (4-12)
[2021-02-19 18:29] LABS: PT Patient Result 11.3 SECS (10.5-12.0)
[2021-02-19] MEDS ORDERED: hydrALAZINE 20 MG/1 ML VIAL IV STA ×2 (18:34→21:01)
[2021-02-19 18:44] LABS: Albumin 2.1 G/DL (3.4-5.0); Bilirubin,Total 0.8 MG/DL (0.20-1.00); Calcium 7.7 MG/DL (8.5-10.1); Osmolality,Calculated 284.1 MOS/KG (273-304); Potassium 3.6 MMOL/L (3.5-5.1)
[2021-02-19] MEDS ORDERED: cefTRIAXone 1,000 MG in SODIUM CHLORIDE 0.9% 100 ML IV STA (20:28)
[2021-02-19] MEDS ORDERED: SODIUM CHLORIDE 0.9% 500 ML IV STA (20:28)
[2021-02-19] MEDS ORDERED: DEXAMETHASONE 4 MG/1 ML VIAL IV STA (20:28)
[2021-02-19] MEDS ORDERED: AZITHROMYCIN INJ 500 MG in SODIUM CHLORIDE 0.9% 250 ML IV STA (20:28)
[2021-02-19] MEDS ORDERED: BISACODYL 5 MG TABLET PO PRN (20:29)
[2021-02-19] MEDS ORDERED: ONDANSETRON 4 MG/2 ML VIAL IV PRN (20:29)
[2021-02-19] MEDS ORDERED: PROMETHAZINE 25 MG/1 ML VIAL IM PRN (20:29)
[2021-02-19] MEDS ORDERED: NALOXONE 0.4 MG/ML VIAL IV PRN (20:29)
[2021-02-19] MEDS ORDERED: MORPHINE 2 MG/1 ML SYRINGE IV PRN (20:29)
[2021-02-19] MEDS ORDERED: SODIUM CHLORIDE 0.9% 1,000 ML IV SCH (20:30)
[2021-02-19] MEDS: ENOXAPARIN 30 MG/0.3 ML SYRINGE SUBCUT SCH (22:12)
[2021-02-19] MEDS: DOCUSATE SODIUM 100 MG CAPSULE PO SCH (22:37)
[2021-02-19] MEDS: ACETAMINOPHEN 325 MG TABLET PO PRN (22:37)
[2021-02-19] MEDS ORDERED: hydrALAZINE 20 MG/1 ML VIAL IV PRN (23:27)
[2021-02-19] MEDS ORDERED: cloNIDine 0.1 MG TABLET PO ONE (23:27)
[2021-02-19] MEDS ORDERED: hydrALAZINE 20 MG/1 ML VIAL IV ONE (23:27)
[2021-02-20 06:29] LABS: Basophils % 0.2 % (0.0-0.8); Hematocrit 27.4 VOL% (42.0-52.0); Hemoglobin 8.4 GM/DL (14.0-18.0); Immature Granulocytes % 0.6 %; Immature Granulocytes Absolute 0.03 #; Lymphocytes # 0.3 10*3/uL (1.4-4.0); Lymphocytes % 5.6 % (21.2-54.2); Mean Corpuscular HGB Conc 30.7 GM/DL (32-36); Mean Platelet Volume 10.7 FL (9.6-12.0); Monocytes % 3.8 % (1.7-12.7); Neutrophils % 89.8 % (38.7-73.9); Platelet Count 148 T/CUMM (130-400); Red Blood Count 3.01 MC/CUMM (3.8-5.5); Red Cell Distribution Width 14.3 % (9.3-17.3)
[2021-02-20 06:51] LABS: Band Neutrophils 1 % (0-10); Lymphocytes 8 % (20-55); Segmented Neutrophils 87 % (50-85); Total Cells Counted 100
[2021-02-20 06:52] LABS: Hypochromasia Slight; Microcytosis 1+; Platelet Estimate Adequate
[2021-02-20 06:53] LABS: Ovalocytes Slight
[2021-02-20 08:30] LABS: Alanine Aminotransferase 17 U/L (16-61); Albumin 1.8 G/DL (3.4-5.0); Alkaline Phosphatase 66 U/L (45-117); Aspartate Amino Transferase 31 U/L (0-37); Bilirubin,Total < 0.39 MG/DL (0.20-1.00); Blood Urea Nitrogen 19 MG/DL (7-18); Calcium 7.4 MG/DL (8.5-10.1); Carbon Dioxide 18 MMOL/L (21-32); Estimated Glom Filtration Rate 45 ML/MIN; Glucose 182 MG/DL (74-106); Osmolality,Calculated 289.1 MOS/KG (273-304); Potassium 3.7 MMOL/L (3.5-5.1); Sodium 142 MMOL/L (136-145); Total Protein 5.7 G/DL (6.4-8.2)
[2021-02-20] MEDS: PANTOPRAZOLE 40 MG TABLET PO SCH (09:04)
[2021-02-20] MEDS: DOCUSATE SODIUM 100 MG CAPSULE PO SCH ×2 (09:04→20:55)
[2021-02-20] MEDS: CHOLECALCIFEROL 1,000 UNIT TABLET PO SCH (10:20)
[2021-02-20] MEDS: ZINC GLUCONATE 50 MG TABLET PO SCH (10:20)
[2021-02-20] MEDS: ASCORBIC ACID 500 MG TABLET PO SCH ×2 (10:20→20:55)
[2021-02-20] MEDS: FAMOTIDINE 20 MG TABLET PO SCH ×2 (10:20→20:54)
[2021-02-20] MEDS: cefTRIAXone 1,000 MG in SODIUM CHLORIDE 0.9% 100 ML IV SCH (10:21)
[2021-02-20] MEDS: DEXAMETHASONE 4 MG/1 ML VIAL IV SCH (10:21)
[2021-02-20] MEDS ORDERED: POTASSIUM CHLORIDE RIDER 10 MEQ/100 ML PREMIX IV PRN (12:56)
[2021-02-20] MEDS ORDERED: POTASSIUM CHLORIDE 20 MEQ TABLET PO PRN (12:56)
[2021-02-20] MEDS ORDERED: GLUCAGON 1 MG VIAL IM PRN (12:56)
[2021-02-20] MEDS ORDERED: MAGNESIUM SULF RIDER 2 GM/50 ML PREMIX IV PRN (12:56)
[2021-02-20] MEDS ORDERED: MAGNESIUM SULF RIDER 4 GM/100 ML PREMIX IV PRN (12:56)
[2021-02-20] MEDS ORDERED: DEXTROSE 50% 25 GM/50 ML VIAL IV PRN ×2 (12:56→14:46)
[2021-02-20] MEDS ORDERED: FUROSEMIDE 40 MG/4 ML VIAL IV SCH (13:00)
[2021-02-20] MEDS ORDERED: oxyCODONE IR 5 MG TABLET PO PRN (13:01)
[2021-02-20] MEDS: ISOSORBIDE MONONITRATE 60 MG TABLET PO SCH (15:21)
[2021-02-20] MEDS: amLODIPine 10 MG TABLET PO SCH (15:21)
[2021-02-20] MEDS: INSULIN LISPRO 100 UNIT/ML SUBCUT SCH ×2 (18:31→20:53)
[2021-02-20] MEDS ORDERED: ALBUTEROL INHALER 18 GM INH SCH (19:00)
[2021-02-20] MEDS: cloNIDine 0.1 MG TABLET PO SCH (20:54)
[2021-02-20] MEDS: ENOXAPARIN 30 MG/0.3 ML SYRINGE SUBCUT SCH (20:54)
[2021-02-20] MEDS: ALBUTEROL INHALER 18 GM INH SCH (23:08)
[2021-02-21] MEDS: hydrALAZINE 20 MG/1 ML VIAL IV PRN ×2 (04:35→23:40)
[2021-02-21] MEDS: ACETAMINOPHEN 325 MG TABLET PO PRN (04:47)
[2021-02-21 05:10] LABS: Hematocrit 27.7 VOL% (42.0-52.0); Hemoglobin 8.9 GM/DL (14.0-18.0); Immature Granulocytes % 0.6 %; Immature Granulocytes Absolute 0.03 #; Lymphocytes # 0.5 10*3/uL (1.4-4.0); Lymphocytes % 9.7 % (21.2-54.2); Mean Corpuscular HGB Conc 32.1 GM/DL (32-36); Mean Corpuscular Volume 89.6 FL (87-102); Mean Platelet Volume 11.7 FL (9.6-12.0); Monocytes % 7.7 % (1.7-12.7); Platelet Count 157 T/CUMM (130-400); Red Blood Count 3.09 MC/CUMM (3.8-5.5); Red Cell Distribution Width 14.2 % (9.3-17.3); White Blood Count 5.4 T/CUMM (4-12)
[2021-02-21 05:45] LABS: Albumin 1.8 G/DL (3.4-5.0); Bilirubin,Total 0.4 MG/DL (0.20-1.00); Calcium 7.6 MG/DL (8.5-10.1); Osmolality,Calculated 285.7 MOS/KG (273-304); Potassium 3.9 MMOL/L (3.5-5.1); Total Protein 5.7 G/DL (6.4-8.2)
[2021-02-21] MEDS: ALBUTEROL INHALER 18 GM INH SCH ×4 (06:43→23:39)
[2021-02-21] MEDS ORDERED: FUROSEMIDE 40 MG/4 ML VIAL IV SCH (09:00)
[2021-02-21] MEDS: cloNIDine 0.1 MG TABLET PO SCH ×2 (09:28→20:54)
[2021-02-21] MEDS: INSULIN LISPRO 100 UNIT/ML SUBCUT SCH ×4 (09:28→20:54)
[2021-02-21] MEDS: ROSUVASTATIN 20 MG TABLET PO SCH (09:28)
[2021-02-21] MEDS: DOCUSATE SODIUM 100 MG CAPSULE PO SCH ×2 (09:28→20:57)
[2021-02-21] MEDS: DEXAMETHASONE 4 MG/1 ML VIAL IV SCH (09:28)
[2021-02-21] MEDS: cefTRIAXone 1,000 MG in SODIUM CHLORIDE 0.9% 100 ML IV SCH (09:29)
[2021-02-21] MEDS: FAMOTIDINE 20 MG TABLET PO SCH ×2 (09:29→20:55)
[2021-02-21] MEDS: ISOSORBIDE MONONITRATE 60 MG TABLET PO SCH (09:29)
[2021-02-21] MEDS: PANTOPRAZOLE 40 MG TABLET PO SCH (09:29)
[2021-02-21] MEDS: amLODIPine 10 MG TABLET PO SCH (09:29)
[2021-02-21] MEDS: ZINC GLUCONATE 50 MG TABLET PO SCH (09:29)
[2021-02-21] MEDS: CHOLECALCIFEROL 1,000 UNIT TABLET PO SCH (09:29)
[2021-02-21] MEDS: ASCORBIC ACID 500 MG TABLET PO SCH ×2 (09:29→20:55)
[2021-02-21] MEDS: AZITHROMYCIN 250 MG TABLET PO SCH (09:29)
[2021-02-21] MEDS: oxyCODONE/ACETAMINOPHEN 5-325 MG TABLET PO PRN ×2 (09:30→20:56)
[2021-02-21] MEDS ORDERED: REMDESIVIR 200 MG in SODIUM CHLORIDE 0.9% 210 ML IV ONE (10:30)
[2021-02-21] MEDS: ENOXAPARIN 30 MG/0.3 ML SYRINGE SUBCUT SCH (20:54)
[2021-02-22] MEDS: ALBUTEROL INHALER 18 GM INH SCH ×4 (04:01→22:25)
[2021-02-22 04:07] LABS: Hematocrit 24.7 VOL% (42.0-52.0); Hemoglobin 7.9 GM/DL (14.0-18.0); Immature Granulocytes % 0.5 %; Immature Granulocytes Absolute 0.02 #; Lymphocytes # 0.5 10*3/uL (1.4-4.0); Lymphocytes % 10.8 % (21.2-54.2); Mean Corpuscular Volume 90.1 FL (87-102); Mean Platelet Volume 11.4 FL (9.6-12.0); Neutrophils % 82.7 % (38.7-73.9); Platelet Count 145 T/CUMM (130-400); Red Blood Count 2.74 MC/CUMM (3.8-5.5); Red Cell Distribution Width 14.2 % (9.3-17.3); White Blood Count 4.2 T/CUMM (4-12)
[2021-02-22 04:13] LABS: ABG HCO3 18.2 MMOL/L (20-26); ABG Oxygen Saturation 96.9 % (95-100); ABG PCO2 35.2 MM HG (35-48); ABG PH 7.332 (7.35-7.45); ABG PO2 100.5 MM HG (80-95); ABG TCO2 19.3 MMOL/L (23-27)
[2021-02-22 04:32] LABS: Uric Acid 6.7 MG/DL (3.5-7.2)
[2021-02-22 04:36] LABS: Albumin 1.5 G/DL (3.4-5.0); Bilirubin,Total 1.3 MG/DL (0.20-1.00); Osmolality,Calculated 293.3 MOS/KG (273-304); Total Protein 5.3 G/DL (6.4-8.2)
[2021-02-22] MEDS: oxyCODONE/ACETAMINOPHEN 5-325 MG TABLET PO PRN ×3 (06:01→16:10)
[2021-02-22] MEDS: ZINC GLUCONATE 50 MG TABLET PO SCH (08:25)
[2021-02-22] MEDS: cloNIDine 0.1 MG TABLET PO SCH (08:25)
[2021-02-22] MEDS: FAMOTIDINE 20 MG TABLET PO SCH ×2 (08:26→22:21)
[2021-02-22] MEDS: ASCORBIC ACID 500 MG TABLET PO SCH ×2 (08:26→22:24)
[2021-02-22] MEDS: CHOLECALCIFEROL 1,000 UNIT TABLET PO SCH (08:26)
[2021-02-22] MEDS: ISOSORBIDE MONONITRATE 60 MG TABLET PO SCH (08:26)
[2021-02-22] MEDS: amLODIPine 10 MG TABLET PO SCH (08:27)
[2021-02-22] MEDS: DOCUSATE SODIUM 100 MG CAPSULE PO SCH ×2 (08:27→22:20)
[2021-02-22] MEDS: AZITHROMYCIN 250 MG TABLET PO SCH (08:27)
[2021-02-22] MEDS: ROSUVASTATIN 20 MG TABLET PO SCH (08:27)
[2021-02-22] MEDS: PANTOPRAZOLE 40 MG TABLET PO SCH (08:27)
[2021-02-22] MEDS: DEXAMETHASONE 4 MG/1 ML VIAL IV SCH (08:28)
[2021-02-22] MEDS: INSULIN LISPRO 100 UNIT/ML SUBCUT SCH ×4 (08:28→22:22)
[2021-02-22] MEDS: cefTRIAXone 1,000 MG in SODIUM CHLORIDE 0.9% 100 ML IV SCH (08:30)
[2021-02-22] MEDS: REMDESIVIR 100 MG in SODIUM CHLORIDE 0.9% 100 ML IV SCH (10:07)
[2021-02-22] MEDS ORDERED: FUROSEMIDE 40 MG/4 ML VIAL IV ONE (14:47)
[2021-02-22] MEDS ORDERED: cloNIDine 0.1 MG TABLET PO SCH (15:00)
[2021-02-22] MEDS: hydrALAZINE 25 MG TABLET PO SCH ×2 (15:58→22:21)
[2021-02-22] MEDS: ALBUMIN 25% 25 GM/100 ML VIAL IV SCH ×2 (15:59→22:25)
[2021-02-22] MEDS: ENOXAPARIN 30 MG/0.3 ML SYRINGE SUBCUT SCH (22:22)
[2021-02-23] MEDS ORDERED: ALPRAZolam 0.25 MG TABLET PO PRN (01:26)
[2021-02-23] MEDS: BENZONATATE 100 MG CAPSULE PO SCH ×3 (02:01→15:46)
[2021-02-23 04:56] LABS: Hematocrit 27.9 VOL% (42.0-52.0); Hemoglobin 8.6 GM/DL (14.0-18.0); Immature Granulocytes % 0.9 %; Immature Granulocytes Absolute 0.04 #; Lymphocytes # 0.6 10*3/uL (1.4-4.0); Lymphocytes % 12.9 % (21.2-54.2); Mean Corpuscular HGB Conc 30.8 GM/DL (32-36); Mean Corpuscular Volume 88.6 FL (87-102); Mean Platelet Volume 11.7 FL (9.6-12.0); Monocytes % 3.4 % (1.7-12.7); Neutrophils % 82.8 % (38.7-73.9); Platelet Count 159 T/CUMM (130-400); Red Blood Count 3.15 MC/CUMM (3.8-5.5); Red Cell Distribution Width 14.4 % (9.3-17.3); White Blood Count 4.7 T/CUMM (4-12)
[2021-02-23 05:26] LABS: Alanine Aminotransferase 26 U/L (16-61); Albumin 1.9 G/DL (3.4-5.0); Alkaline Phosphatase 67 U/L (45-117); Aspartate Amino Transferase 36 U/L (0-37); Bilirubin,Total < 0.39 MG/DL (0.20-1.00); Blood Urea Nitrogen 43 MG/DL (7-18); Calcium 7.2 MG/DL (8.5-10.1); Carbon Dioxide 17 MMOL/L (21-32); Estimated Glom Filtration Rate 35 ML/MIN; Glucose 171 MG/DL (74-106); Osmolality,Calculated 293.4 MOS/KG (273-304); Sodium 140 MMOL/L (136-145); Thyroid Stimulating Hormone 0.776 uIU/ml (0.358-3.74); Total Protein 5.9 G/DL (6.4-8.2)
[2021-02-23 05:53] LABS: Band Neutrophils 2 % (0-10); Lymphocytes 12 % (20-55); Platelet Estimate Normal; Segmented Neutrophils 82 % (50-85)
[2021-02-23 05:54] LABS: Total Cells Counted 100
[2021-02-23] MEDS: ALBUMIN 25% 25 GM/100 ML VIAL IV SCH ×2 (06:22→15:57)
[2021-02-23] MEDS: ALBUTEROL INHALER 18 GM INH SCH ×3 (06:22→18:12)
[2021-02-23] MEDS ORDERED: FUROSEMIDE 40 MG/4 ML VIAL IV STA (06:26)
[2021-02-23 07:29] LABS: Amorphous Crystals,Urine Occasional /HPF (Few); Bacteria,Urine Few /HPF (Few); Bilirubin,Urine Negative (Negative); Blood, Urine Moderate mg/dL (Negative); Glucose,Urine (UA) 50 mg/dL (Negative); Hyaline Casts,Urine 5 /LPF (0-3); Ketones,Urine Negative (Negative); Mucus,Urine Occasional /LPF (Occasional); Nitrite,Urine Negative (Negative); Protein,Urine >=500 MG/DL; RBC,Urine 68 /HPF (0-4); Squamous Epithelial Cell,Urine Occasional /HPF (0-10); Urine Appearance CLOUDY (Clear); Urine Color Yellow (Yellow); Urine Urobilinogen < 2.0 EU/DL (0.2-1.0)
[2021-02-23 07:53] LABS: Protein/Creatinine Ratio,Urine 15.6 RATIO
[2021-02-23] MEDS ORDERED: MAGNESIUM SULF RIDER 2 GM/50 ML PREMIX IV ONE (08:51)
[2021-02-23] MEDS ORDERED: LORazepam 2 MG/1 ML VIAL IV SCH (09:00)
[2021-02-23] MEDS ORDERED: FUROSEMIDE 20 MG/2 ML VIAL IV SCH (09:00)
[2021-02-23] MEDS: DILTIAZEM 30 MG TABLET PO SCH ×3 (09:35→20:15)
[2021-02-23] MEDS: ISOSORBIDE MONONITRATE 60 MG TABLET PO SCH (09:35)
[2021-02-23] MEDS: ZINC GLUCONATE 50 MG TABLET PO SCH (09:35)
[2021-02-23] MEDS: DEXAMETHASONE 4 MG/1 ML VIAL IV SCH (09:35)
[2021-02-23] MEDS: AZITHROMYCIN 250 MG TABLET PO SCH (09:35)
[2021-02-23] MEDS: FAMOTIDINE 20 MG TABLET PO SCH ×2 (09:35→20:15)
[2021-02-23] MEDS: INSULIN LISPRO 100 UNIT/ML SUBCUT SCH ×3 (09:35→17:45)
[2021-02-23] MEDS: CHOLECALCIFEROL 1,000 UNIT TABLET PO SCH (09:35)
[2021-02-23] MEDS: PANTOPRAZOLE 40 MG TABLET PO SCH (09:35)
[2021-02-23] MEDS: ROSUVASTATIN 20 MG TABLET PO SCH (09:35)
[2021-02-23] MEDS: ASCORBIC ACID 500 MG TABLET PO SCH ×2 (09:35→20:15)
[2021-02-23] MEDS: DOCUSATE SODIUM 100 MG CAPSULE PO SCH ×2 (09:35→20:15)
[2021-02-23] MEDS: hydrALAZINE 25 MG TABLET PO SCH ×3 (09:35→20:15)
[2021-02-23] MEDS: methylPREDNISolone SOD SUC 125 MG/2 ML VIAL IV SCH ×2 (09:40→17:45)
[2021-02-23] MEDS: REMDESIVIR 100 MG in SODIUM CHLORIDE 0.9% 100 ML IV SCH (09:45)
[2021-02-23] MEDS: cefTRIAXone 1,000 MG in SODIUM CHLORIDE 0.9% 100 ML IV SCH (10:10)
[2021-02-23] MEDS ORDERED: OLANZapine 10 MG VIAL IM ONE (10:50)
[2021-02-23] MEDS ORDERED: ETOMIDATE 20 MG/10 ML VIAL IV ONE ×6 (11:02→11:20)
[2021-02-23] MEDS ORDERED: SUCCINYLCHOLINE 200 MG/10 ML VIAL ONE ×2 (11:02→11:54)
[2021-02-23] MEDS ORDERED: SUCCINYLCHOLINE 200 MG/10 ML VIAL IV ONE ×3 (11:19→11:57)
[2021-02-23] MEDS ORDERED: MIDAZOLAM 2 MG/2 ML VIAL ONE (11:20)
[2021-02-23] MEDS: fentaNYL INJ 1,250 MCG in SODIUM CHLORIDE 0.9% 225 ML IV PRN ×3 (11:25→20:21)
[2021-02-23] MEDS: MIDAZOLAM 100 MG in SODIUM CHLORIDE 0.9% 80 ML IV PRN ×3 (11:25→21:50)
[2021-02-23] MEDS: ROCURONIUM 500 MG in SODIUM CHLORIDE 0.9% 500 ML IV PRN ×2 (12:20→18:00)
[2021-02-23 15:17] LABS: ABG Base Excess -9.8 MMOL/L (-2.5-2.5); ABG HCO3 16.5 MMOL/L (20-26); ABG Oxygen Saturation 93.7 % (95-100); ABG PO2 80.6 MM HG (80-95); ABG TCO2 17.1 MMOL/L (23-27)
[2021-02-23 15:20] LABS: ABG PH 7.191 (7.35-7.45)
[2021-02-23] MEDS ORDERED: LORazepam 2 MG/1 ML VIAL IV PRN (15:27)
[2021-02-23] MEDS: SODIUM BICARBONATE 50 MEQ/50 ML VIAL IV SCH (16:05)
[2021-02-23] MEDS: ENOXAPARIN 100 MG/ML SYRINGE SUBCUT SCH (17:45)
[2021-02-24] MEDS: ALBUMIN 25% 25 GM/100 ML VIAL IV SCH ×2 (00:33→06:15)
[2021-02-24] MEDS: fentaNYL INJ 2,500 MCG in SODIUM CHLORIDE 0.9% 75 ML IV PRN ×5 (00:37→18:25)
[2021-02-24] MEDS: methylPREDNISolone SOD SUC 125 MG/2 ML VIAL IV SCH ×3 (00:38→16:30)
[2021-02-24] MEDS: hydrALAZINE 20 MG/1 ML VIAL IV PRN ×2 (00:39→05:50)
[2021-02-24] MEDS: INSULIN LISPRO 100 UNIT/ML SUBCUT SCH ×4 (00:39→17:32)
[2021-02-24] MEDS: ALBUTEROL INHALER 18 GM INH SCH ×5 (01:56→23:05)
[2021-02-24] MEDS: MIDAZOLAM 100 MG in SODIUM CHLORIDE 0.9% 80 ML IV PRN ×3 (02:58→14:04)
[2021-02-24] MEDS: SODIUM BICARBONATE 50 MEQ/50 ML VIAL IV SCH ×2 (03:38→15:54)
[2021-02-24 04:05] LABS: ABG Base Excess -6.8 MMOL/L (-2.5-2.5); ABG HCO3 19.6 MMOL/L (20-26); ABG Oxygen Saturation 96.3 % (95-100); ABG PCO2 43.3 MM HG (35-48); ABG PH 7.273 (7.35-7.45); ABG PO2 90.8 MM HG (80-95); ABG TCO2 20.9 MMOL/L (23-27)
[2021-02-24 04:25] LABS: Hematocrit 22.9 VOL% (42.0-52.0); Hemoglobin 7.1 GM/DL (14.0-18.0); Immature Granulocytes % 0.8 %; Immature Granulocytes Absolute 0.03 #; Lymphocytes # 0.5 10*3/uL (1.4-4.0); Lymphocytes % 12.5 % (21.2-54.2); Mean Corpuscular Volume 91.6 FL (87-102); Mean Platelet Volume 11.7 FL (9.6-12.0); Monocytes % 3.1 % (1.7-12.7); Neutrophils % 83.6 % (38.7-73.9); Platelet Count 132 T/CUMM (130-400); Red Cell Distribution Width 14.5 % (9.3-17.3); White Blood Count 3.6 T/CUMM (4-12)
[2021-02-24 04:48] LABS: Albumin 2.2 G/DL (3.4-5.0); Bilirubin,Total 0.7 MG/DL (0.20-1.00); Calcium 6.9 MG/DL (8.5-10.1); Potassium 4.1 MMOL/L (3.5-5.1); Total Protein 5.6 G/DL (6.4-8.2)
[2021-02-24 04:55] LABS: Band Neutrophils 2 % (0-10); Hypochromasia 1+; Lymphocytes 11 % (20-55); Microcytosis 1+; Platelet Estimate Adequate; Segmented Neutrophils 83 % (50-85); Total Cells Counted 100
[2021-02-24] MEDS: ROCURONIUM 500 MG in SODIUM CHLORIDE 0.9% 500 ML IV PRN ×2 (05:21)
[2021-02-24] MEDS: DOCUSATE SODIUM 100 MG CAPSULE PO SCH ×2 (08:36→20:51)
[2021-02-24] MEDS: FAMOTIDINE 20 MG TABLET PO SCH (08:36)
[2021-02-24] MEDS: DILTIAZEM 30 MG TABLET PO SCH (08:36)
[2021-02-24] MEDS: hydrALAZINE 25 MG TABLET PO SCH (08:36)
[2021-02-24] MEDS: ISOSORBIDE MONONITRATE 60 MG TABLET PO SCH (08:36)
[2021-02-24] MEDS: CHOLECALCIFEROL 1,000 UNIT TABLET PO SCH (08:37)
[2021-02-24] MEDS: AZITHROMYCIN 250 MG TABLET PO SCH (08:37)
[2021-02-24] MEDS: cefTRIAXone 1,000 MG in SODIUM CHLORIDE 0.9% 100 ML IV SCH (08:37)
[2021-02-24] MEDS: ASCORBIC ACID 500 MG TABLET PO SCH ×2 (08:37→20:51)
[2021-02-24] MEDS: ZINC GLUCONATE 50 MG TABLET PO SCH (08:37)
[2021-02-24] MEDS ORDERED: PANTOPRAZOLE 40 MG VIAL IV SCH (09:00)
[2021-02-24] MEDS ORDERED: FUROSEMIDE 40 MG/4 ML VIAL IV SCH (09:00)
[2021-02-24] MEDS: IVERMECTIN 3 MG TABLET PO SCH (09:05)
[2021-02-24] MEDS ORDERED: FUROSEMIDE 40 MG/4 ML VIAL IV PRN (10:56)
[2021-02-24] MEDS: DILTIAZEM 90 MG TABLET PO SCH ×2 (12:15→18:54)
[2021-02-24] MEDS: MINERAL OIL/PETROLATUM OPH OINT 3.5 GM TUBE BOTH EYES SCH ×2 (15:54→20:50)
[2021-02-24] MEDS: ENOXAPARIN 100 MG/ML SYRINGE SUBCUT SCH (15:56)
[2021-02-24 19:23] VITALS: BP 135/80
[2021-02-25] MEDS: MIDAZOLAM 100 MG in SODIUM CHLORIDE 0.9% 80 ML IV PRN (00:04)
[2021-02-25] MEDS: fentaNYL INJ 2,500 MCG in SODIUM CHLORIDE 0.9% 75 ML IV PRN ×2 (00:25→07:10)
[2021-02-25] MEDS: INSULIN LISPRO 100 UNIT/ML SUBCUT SCH ×4 (00:36→17:54)
[2021-02-25] MEDS: methylPREDNISolone SOD SUC 125 MG/2 ML VIAL IV SCH ×3 (02:28→16:30)
[2021-02-25] MEDS: DILTIAZEM 90 MG TABLET PO SCH ×3 (03:05→18:07)
[2021-02-25] MEDS: SODIUM BICARBONATE 50 MEQ/50 ML VIAL IV SCH (03:45)
[2021-02-25] MEDS: ALBUTEROL INHALER 18 GM INH SCH ×4 (04:10→22:52)
[2021-02-25 04:26] LABS: Basophils % 0.2 % (0.0-0.8); Hematocrit 26.1 VOL% (42.0-52.0); Hemoglobin 8.5 GM/DL (14.0-18.0); Immature Granulocytes % 1.6 %; Immature Granulocytes Absolute 0.07 #; Lymphocytes # 0.5 10*3/uL (1.4-4.0); Lymphocytes % 10.1 % (21.2-54.2); Mean Corpuscular HGB Conc 32.6 GM/DL (32-36); Mean Corpuscular Volume 89.1 FL (87-102); Mean Platelet Volume 11.9 FL (9.6-12.0); Monocytes % 4.9 % (1.7-12.7); NRBC # 0.04 10*3/uL; Neutrophils % 83.2 % (38.7-73.9); Platelet Count 166 T/CUMM (130-400); Red Blood Count 2.93 MC/CUMM (3.8-5.5); Red Cell Distribution Width 14.7 % (9.3-17.3); White Blood Count 4.5 T/CUMM (4-12)
[2021-02-25 04:50] LABS: Band Neutrophils 1 % (0-10); Hypochromasia Slight; Lymphocytes 9 % (20-55); Nucleated Red Blood Cells 1 (0-5); Platelet Estimate Normal; Segmented Neutrophils 88 % (50-85); Total Cells Counted 100
[2021-02-25 04:55] LABS: ABG Base Excess -7.2 MMOL/L (-2.5-2.5); ABG HCO3 18.4 MMOL/L (20-26); ABG Oxygen Saturation 94.3 % (95-100); ABG PCO2 44.6 MM HG (35-48); ABG PH 7.252 (7.35-7.45); ABG PO2 77.3 MM HG (80-95); ABG TCO2 18.6 MMOL/L (23-27)
[2021-02-25 05:08] LABS: Bilirubin,Total 0.6 MG/DL (0.20-1.00); Ferritin 3389.9 ng/ml (26-388); Osmolality,Calculated 303.3 MOS/KG (273-304); Potassium 4.2 MMOL/L (3.5-5.1); Total Protein 5.6 G/DL (6.4-8.2)
[2021-02-25 06:05] LABS: Protein/Creatinine Ratio,Urine 9.2 RATIO
[2021-02-25] MEDS: ASCORBIC ACID 500 MG TABLET PO SCH ×2 (10:00→20:28)
[2021-02-25] MEDS: FAMOTIDINE 20 MG TABLET PO SCH (10:00)
[2021-02-25] MEDS: cefTRIAXone 1,000 MG in SODIUM CHLORIDE 0.9% 100 ML IV SCH (10:00)
[2021-02-25] MEDS: DOCUSATE SODIUM 100 MG CAPSULE PO SCH ×2 (10:00→20:28)
[2021-02-25] MEDS: ZINC GLUCONATE 50 MG TABLET PO SCH (10:00)
[2021-02-25] MEDS: IVERMECTIN 3 MG TABLET PO SCH (10:00)
[2021-02-25] MEDS: CHOLECALCIFEROL 1,000 UNIT TABLET PO SCH (10:00)
[2021-02-25] MEDS: MINERAL OIL/PETROLATUM OPH OINT 3.5 GM TUBE BOTH EYES SCH (10:31)
[2021-02-25] MEDS: hydrALAZINE 25 MG TABLET PO SCH ×2 (15:30→20:28)
[2021-02-25] MEDS: ENOXAPARIN 100 MG/ML SYRINGE SUBCUT SCH (16:30)
[2021-02-25] MEDS: INSULIN GLARGINE 100 UNIT/ML SUBCUT SCH (16:30)
[2021-02-25] MEDS ORDERED: HEPARIN 10,000 UNIT/10 ML VIAL IV PRN (17:13)
[2021-02-25] MEDS: hydrALAZINE 20 MG/1 ML VIAL IV PRN (21:02)
[2021-02-26] MEDS: methylPREDNISolone SOD SUC 125 MG/2 ML VIAL IV SCH ×2 (00:58→11:36)
[2021-02-26] MEDS: INSULIN LISPRO 100 UNIT/ML SUBCUT SCH ×2 (00:58→05:21)
[2021-02-26] MEDS: DILTIAZEM 90 MG TABLET PO SCH ×2 (02:14→11:38)
[2021-02-26] MEDS: hydrALAZINE 20 MG/1 ML VIAL IV PRN (02:14)
[2021-02-26 04:25] LABS: Basophils % 0.2 % (0.0-0.8); Hematocrit 30.6 VOL% (42.0-52.0); Hemoglobin 9.6 GM/DL (14.0-18.0); Immature Granulocytes % 4.2 %; Immature Granulocytes Absolute 0.54 #; Lymphocytes # 0.7 10*3/uL (1.4-4.0); Lymphocytes % 5.4 % (21.2-54.2); Mean Corpuscular HGB Conc 31.4 GM/DL (32-36); Mean Corpuscular Volume 90.3 FL (87-102); Mean Platelet Volume 11.7 FL (9.6-12.0); Monocytes % 4.5 % (1.7-12.7); NRBC # 0.04 10*3/uL; Neutrophils % 85.7 % (38.7-73.9); Platelet Count 246 T/CUMM (130-400); Red Blood Count 3.39 MC/CUMM (3.8-5.5); Red Cell Distribution Width 15.2 % (9.3-17.3); White Blood Count 12.8 T/CUMM (4-12)
[2021-02-26 04:45] LABS: ABG Base Excess -6.5 MMOL/L (-2.5-2.5); ABG Oxygen Saturation 92.7 % (95-100); ABG PCO2 54.2 MM HG (35-48); ABG PH 7.211 (7.35-7.45); ABG PO2 74.6 MM HG (80-95); ABG TCO2 20.3 MMOL/L (23-27)
[2021-02-26 04:51] LABS: Bilirubin,Total 0.7 MG/DL (0.20-1.00); Burr Cells Slight; Calcium 6.8 MG/DL (8.5-10.1); Hypochromasia Slight; Lymphocytes 5 % (20-55); Microcytosis Slight; Nucleated Red Blood Cells 1 (0-5); Osmolality,Calculated 305.4 MOS/KG (273-304); Ovalocytes Slight; Platelet Estimate Adequate; Potassium 4.5 MMOL/L (3.5-5.1); Segmented Neutrophils 93 % (50-85); Total Cells Counted 100; Total Protein 5.9 G/DL (6.4-8.2)
[2021-02-26 05:14] LABS: Ferritin 2337.4 ng/ml (26-388)
[2021-02-26] MEDS: hydrALAZINE 25 MG TABLET PO SCH (05:21)
[2021-02-26] MEDS: ALBUTEROL INHALER 18 GM INH SCH ×2 (05:21→11:38)
[2021-02-26 05:28] LABS: Hepatitis B Core IgM Quant 0.17 Index; Hepatitis B Surface Ag Quant < 0.10 Index; Hepatitis B Surface Ag Result Non-Reactive (NonReactive); Hepatitis C Virus Ab Quant 0.06 Index; Hepatitis C Virus Ab Result Non-Reactive (NonReactive)
[2021-02-26] MEDS ORDERED: ATROPINE 1 MG/10 ML SYRINGE IV ONE (07:45)
[2021-02-26] MEDS ORDERED: ATROPINE 1 MG/10 ML SYRINGE ONE (07:45)
[2021-02-26] MEDS ORDERED: SODIUM BICARBONATE 50 MEQ/50 ML SYRINGE IV ONE (07:50)
[2021-02-26] MEDS ORDERED: SODIUM BICARBONATE 50 MEQ/50 ML VIAL IV ONE (07:50)
[2021-02-26] MEDS ORDERED: NOREPINEPHRINE 4 MG/4 ML VIAL IV ONE (07:50)
[2021-02-26 07:52] LABS: ABG Base Excess -6.4 MMOL/L (-2.5-2.5); ABG HCO3 18.2 MMOL/L (20-26); ABG Oxygen Saturation 21.3 % (95-100); ABG PCO2 55.5 MM HG (35-48)
[2021-02-26 07:55] LABS: ABG PH 7.204 (7.35-7.45); ABG PO2 18.9 MM HG (80-95)
[2021-02-26] MEDS ORDERED: NOREPINEPHRINE 8 MG in SODIUM CHLORIDE 0.9% 242 ML IV PRN (08:05)
[2021-02-26] MEDS ORDERED: NOREPINEPHRINE 16 MG in SODIUM CHLORIDE 0.9% 234 ML IV PRN (08:12)
[2021-02-26] MEDS ORDERED: HEPARIN DRIP 25,000 UNITS/500 ML PREMIX IV SCH (08:30)
[2021-02-26] MEDS ORDERED: SODIUM BICARB INJ 150 MEQ in STERILE WATER INJ 850 ML IV SCH (08:30)
[2021-02-26] MEDS ORDERED: SODIUM BICARB INJ 150 MEQ in STERILE WATER INJ 1,000 ML IV SCH (08:30)
[2021-02-26] MEDS ORDERED: EPINEPHrine 1 MG/ML VIAL ONE (08:38)
[2021-02-26] MEDS ORDERED: EPINEPHrine 1 MG/10 ML SYRINGE ONE (08:51)
[2021-02-26] MEDS: CHOLECALCIFEROL 1,000 UNIT TABLET PO SCH (11:36)
[2021-02-26] MEDS: cefTRIAXone 1,000 MG in SODIUM CHLORIDE 0.9% 100 ML IV SCH (11:36)
[2021-02-26] MEDS: ZINC GLUCONATE 50 MG TABLET PO SCH (11:36)
[2021-02-26] MEDS: ASCORBIC ACID 500 MG TABLET PO SCH (11:37)
[2021-02-26] MEDS: INSULIN GLARGINE 100 UNIT/ML SUBCUT SCH (11:37)
[2021-02-26] MEDS: DOCUSATE SODIUM 100 MG CAPSULE PO SCH (11:37)
[2021-02-26] MEDS: IVERMECTIN 3 MG TABLET PO SCH (11:37)
[2021-02-26] MEDS: FAMOTIDINE 20 MG TABLET PO SCH (11:37)
[2021-02-26] MEDS ORDERED: EPINEPHrine 1 MG/10 ML SYRINGE IV ONE (11:44)
[2021-03-02] MEDS ORDERED: cloNIDine 0.2 MG/24 HR PATCH TRANSDERM SCH (09:00)
== END 2021-02-26 08:56 | disposition expired | DRG 208 ==
LOC: N.ED 15:48 → SUATTDRO 20:29 → N.EDINP 20:29 → N.2E 22:01 → N.CC 02-23 10:29
PROVIDERS: ADMIT Family Medicine; ATTEND Internal Medicine